=== PATIENT | male | born 1985 | race Caucasian/White ===

== ENCOUNTER 2017-08-20 13:04 | Day surgery (SDC) | payer OTHER ==
[2017-08-19 16:57] VITALS: BMI 22.8
[~2017-08-20] VITALS: Ht 172.7 cm; Wt 68.0 kg
[2017-08-20] VITALS (11 sets, daily range): BP systolic 117–166; BP diastolic 71–87; PULSE 72–106; RESP 10–20; Ht 172.7 cm; Wt 68.0 kg
[2017-08-20] MEDS ORDERED: MIDAZOLAM 1 MG/ML 2 ML INJ ONE (14:45)
--- NOTE | 2017-08-20 14:53 | HPN ---
Date/Time of Note Date/Time of Note DATE: 08/20/17 TIME: 14:53 Interval H&P Admission Note Pt. seen H&P reviewed: No system changes MARY BONNER Aug 20, 2017 14:53
[2017-08-20] MEDS ORDERED: ROCURONIUM 50 MG INJ ONE (17:31)
[2017-08-20] MEDS ORDERED: LIDOCAINE 2% (SDV) 5 ML INJ ONE (17:31)
[2017-08-20] MEDS ORDERED: PROPOFOL 20 ML ONE (17:31)
[2017-08-20] MEDS ORDERED: ROPIVACAINE 0.5 % 30 ML VIAL ONE (17:31)
--- NOTE | 2017-08-20 17:47 | OPPN ---
Date/Time of Note Date/Time of Note DATE: 08/20/17 TIME: 17:45 Operative Report Preoperative Diagnosis Right forearm traumatic laceration, ulnar nerve laceration, FDS small finger tendon rupture, FCU rupture Postoperative Diagnosis Right forearm traumatic laceration, ulnar nerve laceration, FDS small finger tendon rupture, FCU rupture Operation/Procedure Performed Exploration and debridement of right forearm traumatic laceration, ulnar nerve repair, repair of FDS small finger tendon rupture, repair of FCU tendon rupture Surgeon see signature line safety assistant none Anesthesia: general Estimated blood loss: 0 - 10 ml's Transfusion Required none Specimen none Grafts/Implants none Complications none MARY BONNER Aug 20, 2017 17:47
[2017-08-20] MEDS ORDERED: ONDANSETRON 4 MG INJ ONE (17:48)
[2017-08-20] MEDS ORDERED: MEPERIDINE 100 MG INJ ONE (17:58)
[2017-08-20] MEDS ORDERED: CEFAZOLIN 1 GM INJ ONE (18:00)
[2017-08-20] MEDS ORDERED: ONDANSETRON 4 MG INJ IV PRN (18:30)
[2017-08-20] MEDS ORDERED: DIPHENHYDRAMINE 50 MG INJ IV PRN (18:30)
[2017-08-20] MEDS ORDERED: FENTAnyl 50 MCG/ML VIAL IV PRN (18:30)
[2017-08-20] MEDS ORDERED: METOCLOPRAMIDE 10 MG INJ IV PRN (18:30)
[2017-08-20] MEDS ORDERED: HYDROmorphONE (0.2 MG/ML) 10ML SYG IV PRN ×2 (18:30)
[2017-08-20] MEDS ORDERED: MEPERIDINE 25 MG INJ IV PRN (18:30)
[2017-08-20] MEDS ORDERED: HYDROCODONE/APAP (5/325) TAB PO PRN (18:41)
--- NOTE | 2017-08-21 04:32 | OPR ---
DATE OF OPERATION: 08/20/2017 SURGEON: Primo Lino MD ANESTHESIA: General. PREOPERATIVE DIAGNOSES: 1. Right forearm traumatic laceration. 2. Right flexor digitorum superficialis tendon to the small finger rupture. 3. Right flexor carpi ulnaris tendon rupture. 4. Right ulnar nerve complete laceration. POSTOPERATIVE DIAGNOSES: 1. Right forearm traumatic laceration. 2. Right flexor digitorum superficialis tendon to the small finger rupture. 3. Right flexor carpi ulnaris tendon rupture. 4. Right ulnar nerve complete laceration. OPERATION PERFORMED: 1. Exploration, washout and debridement of right forearm traumatic laceration. 2. Primary repair of right small finger flexor digitorum superficialis tendon rupture. 3. Primary repair of right flexor carpi ulnaris tendon rupture. 4. Grouped fascicular repair of right ulnar nerve laceration, with excision of neuroma and sural nerve autograft from the right leg to the right ulnar nerve gap injury site. 5. [place] of right leg sural nerve autograft. OPERATIVE FINDINGS AT SURGERY: 1. Complete laceration of the ulnar nerve, with formation of neuroma at the proximal stump and gapping of 3 cm. 2. Complete rupture of the FDS to the small finger and FCU tendon. INDICATIONS FOR PROCEDURE: A 32-year-old male with injury to the right forearm. He was seen in clinic and diagnosed with a laceration of the ulnar nerve, as well as laceration of the FDS tendon to the small finger and FCU tendon, with possible FDS tendon to the ring finger injury. He elected to proceed with exploration and repair of injured structures, understanding the risks and benefits. He preferred nerve autograft to nerve allograft for reconstruction, if necessary. He did; however, consent to allograft, as needed. Patient consented to proceed, understanding the risks and benefits. OPERATIVE PROCEDURE: Patient was seen in the preoperative area, and all further questions were answered. Again, he gave informed consent, understanding the risks and benefits. He has taken to the operative suite and placed in the supine position. Then 2 grams of Ancef IV was given, and tourniquet placed in the right upper and right lower extremities. Right upper and lower extremities were prepped with ChloraPrep stick and draped in the usual sterile fashion. Attention was first turned to the arm, and an Esmarch bandage was used to exsanguinate the extremity, and tourniquet inflated at 250 mmHg. The previous traumatic laceration, which was transverse, was utilized in the ulnar aspect of the volar forearm and was extended both proximally and distally, in order to obtain visualization. There were found to be full-thickness tendon ruptures of the FDS tendon to the small finger, as well as the FCU tendon and the ulnar nerve. There was significant scar tissue formation, due to the chronicity of the injury. These structures were carefully dissected out, and the FDS tendon to the small finger was repaired using 3-0 and 4-0 Ethibond. The nerve ends were trimmed back, and healthy nerve was identified, both proximally and distally. There was approximately 3 cm of gapping patient intake representative please change the previous gapping to 3 cm. Both the motor and sensory fascicles were identified. At this point, attention was turned to the right leg, and 3 separate incisions were utilized on the posterolateral aspect of the leg to harvest the sural nerve. After an adequate length of sural nerve was harvested, the leg was copiously irrigated and closed with katlin. Attention was turned back to the forearm, and a grouped fascicular repair was performed for the ulnar nerve, with autograft used for both. Fibrin glue was used to do a cabled nerve graft. The ends were sutured with 8-0 nylon, and an AxoGen nerve wrap was used at both the proximal and distal nerve approximations, along with fibrin glue for further integrity. I was pleased with the appearance of the nerve, and attention was returned to the FCU tendon, which was repaired primarily with 3-0 and 4-0 Ethibond. The cascade of the digits was near normal after all repairs. Wound was copiously irrigated. Skin closed with 4-0 nylon. Xeroform placed on the wound, followed by sterile gauze, Webril, and a dorsal blocking splint, with the wrist in flexion. Tourniquet was deflated after 119 minutes on the right arm, and patient was awakened from anesthesia. He was taken to the postoperative suite in stable condition and tolerated the procedure well, without complication. SPECIMENS: None. ESTIMATED BLOOD LOSS: 5 mL. SPONGE, INSTRUMENT AND NEEDLE COUNTS: Correct. TOURNIQUET TIME: 119 minutes on the right arm. CONDITION ON DISCHARGE: Stable. Dictated By: Primo Lino MD /justin/ray /Document#: [id number] MTDD
== END 2017-08-20 19:15 | disposition home or self-care (01) ==
LOC: SDS 13:04
PROVIDERS: ATTEND Orthopaedic Surgery Hand Surgery
DX: S56.221A Laceration of other flexor muscle, fascia and tendon at forearm level, right arm, initial encounter (principal); S64.01XA Injury of ulnar nerve at wrist and hand level of right arm, initial encounter; W25.XXXA Contact with sharp glass, initial encounter; S66.126A Laceration of flexor muscle, fascia and tendon of right little finger at wrist and hand level, initial encounter; D36.12 Benign neoplasm of peripheral nerves and autonomic nervous system, upper limb, including shoulder; S51.811A Laceration without foreign body of right forearm, initial encounter
CPT/HCPCS: J0690; J2175; J2250; J2405; J2765; J2795; J3010

== ENCOUNTER 2018-10-08 05:58 | Day surgery (SDC) | END 2018-10-08 14:05 | disposition home or self-care (01) ==